=== PATIENT | male | born 1940 | race Caucasian/White ===

== ENCOUNTER → 2021-02-16 14:06 | Outpatient (BNVA) | payer MEDICARE, OTHER, SELFPAY | PROVIDERS: PCP Internal Medicine; Referring Provider Internal Medicine; Visit Provider Surgery | DX: L02.91 Cutaneous abscess, unspecified (principal) | CPT/HCPCS: 10061; 99212 ==

== ENCOUNTER → 2021-03-04 10:40 | Outpatient (BNVA) | payer MEDICARE, OTHER, SELFPAY | PROVIDERS: PCP Internal Medicine; Visit Provider Surgery | DX: L02.212 Cutaneous abscess of back [any part, except buttock and flank] (principal); Z79.899 Other long term (current) drug therapy | CPT/HCPCS: 10061; 99212 ==

== ENCOUNTER 2024-08-14 08:09 | Outpatient (REF) | payer MEDICARE, OTHER, SELFPAY ==
[2024-08-14 08:24] LABS: MANUAL DIFF FLAG NO
[2024-08-14 08:34] LABS: Basophils Absolute Auto 0.1 X10*3/uL (0.0-0.2); Basophils Percent Auto 0.8 % (0-2); Eosinophils Absolute Auto 0.4 X10*3/uL (0.0-0.4); Eosinophils Percent Auto 6.2 % (0-4); Hematocrit 39.6 % (42.0-52.0); Hemoglobin 13.3 g/dl (14.0-18.0); Imm Gran Abs Auto 0.03 X10*3/uL (0.00-0.03); Imm Gran Pct Auto 0.5 % (0.0-0.4); Lymphocytes Absolute Auto 1.6 X10*3/uL (1.2-4.9); Lymphocytes Percent Auto 24.8 % (20-40); Mean Corpuscular HGB Conc 33.6 g/dl (31.0-36.0); Mean Corpuscular Hemoglobin 29.7 pg (27.0-33.0); Mean Corpuscular Volume 88.4 fL (80.0-98.0); Mean Platelet Volume 9.6 fL (9.4-12.4); Monocytes Absolute Auto 0.6 X10*3/uL (0.1-1.2); Monocytes Percent Auto 8.6 % (2-11); Neutrophils Absolute Auto 3.9 x10*3/uL (2.0-8.3); Neutrophils Percent Auto 59.1 % (45-73); Platelet Count 186 X10*3/uL (160-400); Red Blood Count 4.48 X10*6/uL (4.60-5.80); Red Cell Distribution Width 13.1 % (11.0-16.0); White Blood Count 6.6 X10*3/uL (4.8-10.8)
[2024-08-14 08:44] LABS: Estimated Average Glucose 114 mg/dL; Hemoglobin A1c % 5.6 % (<6.0); Total Hemoglobin (HGBA1C) 3362.5806 umol/L
[2024-08-14 09:02] LABS: Alanine Aminotransferase 12 U/L (0-40); Alkaline Phosphatase 87 U/L (39-117); Anion Gap 11 (12-20); Aspartate Amino Transferase 22 U/L (5-37); Bilirubin Total 0.5 mg/dL (0.0-1.0); Blood Urea Nitrogen 19 mg/dL (9-16); Calcium 9.1 mg/dL (8.4-10.2); Carbon Dioxide 31 mmol/L (22-29); Chloride 103 mmol/L (96-108); Cholesterol 151 mg/dL (<200); Estimated Glomerular Filt Rate > 60; Glucose Fasting 99 mg/dL (60-99); HDL Cholesterol 52 mg/dL (>40); LDL Cholesterol Calculated 84 mg/dL (<100); Potassium 4.7 mmol/L (3.3-5.1); Sodium 140 mmol/L (135-145); Total Protein 6.7 g/dL (6.5-8.0); Triglycerides 77 mg/dL (<150)
== END 2024-08-14 08:10 | disposition home or self-care (01) ==
LOC: HO.LAB 08:09
PROVIDERS: PCP Internal Medicine; Visit Provider Internal Medicine
DX: E11.9 Type 2 diabetes mellitus without complications (principal); R53.83 Other fatigue; E78.5 Hyperlipidemia, unspecified
CPT/HCPCS: 36415; 80053; 80061; 83036; 85025

== ENCOUNTER 2024-11-01 10:00 | Outpatient (AMB) | payer MEDICARE, OTHER, SELFPAY ==
--- NOTE | 2024-11-01 10:32 | A.OFFPC_ITS ---
Vital Signs 11/01/24 10:35 Height 5 ft 10 in Weight 216 lb BMI 31.0 BP 140/70 H Blood Pressure Location Rt brachial Position Sitting Respiration 14 Pulse 52 Pulse Source Pulse Oximeter Temp 98.1 F Temp Source Oral Pulse Oximetry (%) 96 Oxygen Delivery Method Room Air Intake Visit Reasons: MEDIA PRODUCER-EST CARE Intake Note: Patient is here to establish care Traveling Engineer Required: No Allergies No Known Drug Allergies Allergy (Unknown, Verified 11/01/24 10:33) U Medication List - Last Reconciled 11/01/24 by Choco Wen MD lisinopril 5 mg PO DAILY metoprolol tartrate 25 mg PO BID 90 days naproxen 500 mg PO BID simvastatin 20 mg PO BEDTIME tamsulosin 0.4 mg PO DAILY Tobacco use date assessed: 11/01/24 Fall risk assessment: 2 + Falls in past year Last assessed Fall Risk: 11/01/24 Dental Screening Dental Screen Date: 11/01/24 Did you have a dental visit in the last 12 months?: No Did you have a dental problem in the last 6 months where you did not have access to dental care?: No Was dental information given to patient?: No HPI MEDIA PRODUCER-EST CARE HPI Details New Patient? ?? Prior PCP:?Dr Lai Last office visit/CPE:? Sep CPE Acute issue(s):? Urinary Urgency since Radiation therapy & some diarrhea & on Eligard - Leupron ?? PMHx:? Prostate CA & Bladde r CA, Dr Singh. HTN, HLD, SurgHx:? R Knee replacement 2022, Dr Wen. FHx:? Brother: Throat CA. Brother: Alzheimers. Sister: RA. Sister: Alzheimers. SocHx:? Smoked - quit > 20 yrs ago. EtOH: 1-2 beers per day. HPI Comments History of Present Illness Details Documentation assistance for christine Wen MD, was provided by Antonio Franklin,? Emergency Response Technician on 11/01/2024 at 11:27 AM EST. I, Dr. Wen, have read, observed, and verified documentation. ?? PFSH Medical History Abscess of skin and subcutaneous tissue Surgical History History of incision and drainage History of removal of cyst History of laminectomy History of cholecystectomy History of shoulder surgery Social History Housing: House Alcohol intake: current Alcohol intake frequency: 0-2 drinks per day Alcohol type: beer Patient Tobacco Use Status: Never used Tobacco e-Cigarette/Vaping Use: Never Used service: Yes Current occupational status: retired Current occupational exposures/hazards: No Cognitive needs: No Hearing needs: Yes Vision needs: Yes Questionnaire PHQ-9 Over the last 2 weeks, how often have you been bothered by any of the following problems? 1. Little interest or pleasure in doing things: not at all 2. Feeling down, depressed, or hopeless: not at all 3. Trouble falling or staying asleep, or sleeping too much: several days 4. Feeling tired or having little energy: not at all 5. Poor appetite or overeating: not at all 6. Feeling bad about yourself - or that you are a failure or have let yourself or your family down: not at all 7. Trouble concentrating on things, such as reading the newspaper or watching television: not at all 8. Moving or speaking so slowly that other people could have noticed. Or the opposite - being so fidgety or restless that you have been moving around a lot m ore than usual: not at all 9. Thoughts that you would be better off or of hurting yourself in some way: not at all Total score: 1 Depression Screening Interpretation: Negative Depression Screening Done: Yes 71080 - PHQ-9 Billing: Yes Source: Developed by Drs. Abe Richards, Ilana Malone, Nicolas Constantino and colleagues, with an educational adrianna from [employer]. Thrive Questionnaire Date Thrive assessed: 11/01/24 I am a: Patient What is your living situation today?: I have a steady place to live Within the past 12 months, did the food you bought not last and you didn't have the money to get more?: Never true Within the past 12 months, did you worry whether your food would run out before you got money to buy more?: Sometimes True Do you have trouble paying for medicines?: No Do you have trouble getting transportation to medical appointments?: No Do you have trouble paying your heating and electricity bill?: No Do you have trouble taking care of your child, family member or friend?: No Do you have trouble with day-to-day activities such as bathing, preparing meals, shopping, managing finances, etc.?: No Are you currently unemployed and looking for a job?: No Are you interested in more education?: No Please select the resources that you would like help with: None Currently or been in a relationship where the following occur: No concerns reported THRIVE Score: 1 AUDIT C Alcohol Use Questionnaire (AUDIT-C) 1. How often do you have a drink containing alcohol?: 2-3 times a week 2. How many drinks containing alcohol do you have on a typical day when you are drinking?: 1 or 2 3. How often do you have six or more drinks on one occasion?: Never Total Score: 3 ANA-7 AMB Questionnaire ANA-7 Date ANA - 7 assessed: 11/01/24 Feeling nervous, anxious, or on edge: 0 = Not at all Not being able to stop or control worryin = Not at all Worrying too much about different things: 0 = Not at all Trouble relaxin = Not at all Being so restless that it is hard to sit still: 0 = Not at all Becoming easily annoyed or irritable: 0 = Not at all Feeling afraid as if something awful might happen: 0 = Not at all Total ANA-7 score (0-4 normal; 5-9 mild; 10-14 moderate; 15-21 severe): 0 Source: Developed by Drs. Abe Richards, Ilana Malone, Nicolas Constantino and colleagues, with an educational adrianna from [employer]. ANA-7 Assessment Billing ANA-7 Assessment Tool: ANA-7 Assessment 14711 Review of Systems Const Denies chills, Denies fatigue, Denies fever(s), Denies headache(s) and Denies weakness ENT Denies dizziness and Denies headache(s) Card Denies chest pain, Denies lightheadedness, Denies dyspnea and Denies other (Palpitations) Resp Denies cough, Denies dyspnea, Denies wheezing and Denies other ( shortness of breath) Musc Denies numbness and Denies tingling Neuro Denies dizziness, Denies headache(s), Denies numbness, Denies tingling, Denies paresthesias and Denies weakness Psych Denies anxiety and Denies depression Endo Denies fatigue Aller/Immun Denies wheezing Physical exam (Primary Care) Vital Signs: Last Vital Signs Temp 98.1 F 11/01/24 10:35 Pulse 52 11/01/24 10:35 Resp 14 11/01/24 10:35 BP 140/70 H 11/01/24 10:35 Pulse Ox 96 11/01/24 10:35 Oxygen Delivery Method Room Air 11/01/24 10:35 BMI result Body Mass Index 31.0 Tobacco/Smoking Status: Tobacco use Status Tobacco use date assessed 11/01/24 11/01/24 10:38 Patient Tobacco Use Status Never used Tobacco 11/01/24 10:38 e-Cigarette/Vaping Use Never Used 11/01/24 10:38 PHQ-9: PHQ-9 Score PHQ-9: Total score 1 11/01/24 10:38 Depression Screening Interpretation: Negative Thrive Assessment: Date of Thrive Assessment Date Thrive assessed 11/01/24 11/01/24 10:38 Currently or been in a relationship where the following occur: No concerns reported Const General: no acute distress and well developed Nutritional Appearance: well nourished Orientation/consciousness: patient oriented x3 HENMT Head: Yes normocephalic and Yes atraumatic Eyes General: appearance normal, both eyes and all related structures Pupils: Equal, round and reactive pupils present EOM: EOMs intact bilaterally Resp Other: Wheeze/squeak Effort & Inspection: normal respiratory effort Auscultation: clear to auscultation bilaterally Cardio Rate: regular rate Rhythm: regular rhythm Heart sounds: S1 normal heart sound present, S2 normal heart sound present, no gallops, no murmurs and no rubs Neuro General: patient oriented x3 and gait normal Cranial nerves: Yes Equal, round and reactive pupils present Psych Affect: normal affect Coding Level of Care Code New Pt Level 4 (91836) Diagnoses Hypertension I10 Hyperlipidemia E78.5 Urinary urgency R39.15 Diarrhea R19.7 History of prostate cancer Z85.46 History of bladder cancer Z85.51 History of knee replacement Z96.659 Laboratory exam ordered as part of routine general medical examination Z00.00 Additional Codes ANA-7 Assessment Billing - ANA-7 Assessment Tool: ANA-7 Assessment 57519 ([id number]) PHQ-9 - 01097 - PHQ-9 Billing: Yes ([id number]) Assessment & Plan Assessment & Plan (1) Hypertension: Code(s): I10 - Essential (primary) hypertension Category: Medical Plan: Blood?pressure?is?elevated?today.??Goal?is?less?than?140/90 1st?visit?and?patient?notes?that?he?expects?it?high?due?to?this. Will?have?him?come?back?for?follow-up.??If?still?el evated,?will?adjust?medication. Continue?current?medication?regimen (2) Hyperlipidemia: Code(s): E78.5 - Hyperlipidemia, unspecified Category: Medical Plan: Continue?simvastatin Will review?recent?lab?work?from?his?private?physician.??Patient?say s?his?lipids?were?controlled. (3) Urinary urgency: Code(s): R39.15 - Urgency of urination Category: Medical Plan: Followed?by?Dr. Singh Urinary?symptoms?since?radiation?therapy?for?prostate?and?bladder?cancer. Follow-up?with??as?recommended (4) Diarrhea: Code(s): R19.7 - Diarrhea, unspecified Category: Medical Plan: Appears?to?be secondary?to Eligard And?radiation?therapy. Follow-up?with??as?recommended (5) History of prostate cancer: Code(s): Z85.46 - Personal history of malignant neoplasm of prostate Category: Medical Plan: As?above,?follow-up?with?Urology (6) History of bladder cancer: Code(s): Z85.51 - Personal history of malignant neoplasm of bladder Category: Medical Plan: As above (7) History of knee replacement: Code(s): Z96.659 - Presence of unspecified artificial knee joint Category: Surgical Plan: History?of?right?knee?replacement?with complications?resulting?in?pain?and?decreased?range?of?motion?of?right?knee.??Pa tient?walks?with?a?cane?and?has?mild/moderate gait?disturbance. Recommend?walk-in?shower to?avoid?slips/falls. (8) Laboratory exam ordered as part of routine general medical examination: Code(s): Z00.00 - Encounter for general adult medical examination without abnormal findings Category: Medical Plan: Requesting?lab?work?prior?PCP?and?will?review Medications: Changed From metoprolol tartrate 25 mg PO BID To metoprolol tartrate 25 mg PO BID 90 days 180 tabs 3RF
[2024-11-01 10:35] VITALS: BP 140/70; PULSE 52; RESP 14; TEMP 36.7; O2SAT 96; BMI 31.0
--- OUTSIDE RECORDS SUMMARY | 2024-11-01 11:39 | XMS_ITS | Continuity of Care Document ---
Author Organization [place] - [facility], [facility] Address [address] [place] [address] Care Team Providers Care Vision Impaired Teacher Name Role Phone LOBITO RUDOLPH Referring Provider [phone] LOBITO RUDOLPH Primary Care Provider [phone] Assessment Encounter Date Assessment Date Assessment LastModified by Organization Details LastModified Time 10/10/2024 10/10/2024 Assessment: Lateral shift/tilting noted in patella. Fair quad strength; fatigued with SLR but good amanda to increased weight with therex. Plan: Continued PT is recommended at 2x/week to decrease pain, improve quad strength, and increase participation in functional activities. Not available 10/10/2024 13:23:34 Plan of Treatment Reminders Order Date Submit Date Provider Last Modified By Organization Details Last Modified Time Details Appointments PT FOLLOW-U P 2024 08:30A M Katelynn Cabrera, SAMPLE TAKER OPERATOR Not available Not available Not available PT FOLLOW-U P 2024 09:00A M Katelynn Cabrera, SAMPLE TAKER OPERATOR Not available Not available Not available PT FOLLOW-U P 2024 09:30A M Shilpa Power, DPT Not available Not available Not available PT FOLLOW-U P 2024 09:30A M Shilpa Power, DPT Not available Not available Not available PT FOLLOW-U P 2024 09:00A M Shilpa Power, DPT Not available Not available Not available PT FOLLOW-U P 2024 09:00A M Shilpa Power, DPT Not available Not available Not available RECHECK 15 2024 08:45A M Fauzia Wilson PA-C Not available Not available Not available Lab None recorded . Referral None recorded . Procedures None recorded . Surgeries None recorded . Imaging None recorded . Medication Orders None recorded . Patient TargetsNo targets recorded. Patient InstructionsNo instructions recorded. Reason for Referral None Reported. Problems Name Problem SNOMED Code Status Onset Date Resolution Date Notes Provider Name and Address Organization Details Recorded Time No complaints 771532307 Active Status : 'I'; Not Available [facility] 4 09:10:30 Hip pain 30167388 Active 2023 CASA LAGUNAS [facility] 4 13:08:22 Problem Notes None recorded. Procedures Surgical History Date Name Laterality Status Provider Name and Address Organization Details Recorded Time 5 54198 Therapeutic Exercise (1:1) cancelled Katelynn Cabrera PTA [address] [facility], [place], [address], [facility] 10/30/2024 18:29:11 5 89306: Manual therapy cancelled Katelynn Cabrera PTA [address], [place], [address], [facility] 10/30/2024 18:29:11 5 34658 Therapeutic Exercise (1:1) completed Shilpa Power DPT [address] [facility], [place], [address], [facility] 10/27/2024 13:18:03 5 00609: Manual therapy completed Shilpa Power DPT [address], [place], [address], [facility] 10/27/2024 13:18:03 5 50512 Therapeutic Exercise (1:1) completed Katelynn Cabrera PTA [address], [place], [address], [facility] 10/24/2024 07:25:17 5 06146: Manual therapy completed Katelynn Cabrera PTA [address], [place], [address], [facility] 10/24/2024 07:25:17 5 25111 Therapeutic Exercise (1:1) completed Katelynn Cabrera PTA [address], [place], [address], [facility] 10/19/2024 14:14:44 5 31733: Manual therapy completed Katelynn Cabrera PTA [address], [place], [address], [facility] 10/19/2024 14:14:44 5 94233 Therapeutic Exercise (1:1) completed Shilpa Power DPT [address], [place], [address], [facility] 10/19/2024 07:49:40 5 75945: Manual therapy completed UNIQUE EncinasT [address], [place], [address], [facility] 10/19/2024 07:49:40 5 28776 Therapeutic Exercise (1:1) completed Katelynn Cabrera PTA [address], [place], [address], [facility] 10/12/2024 10:45:00 5 40211: Manual therapy completed Katelynn Cabrera PTA [address], [place], [address], [facility] 10/12/2024 10:45:00 5 72732 Therapeutic Exercise (1:1) completed Katelynn Cabrera PTA [address], [place], [address], [facility] 10/08/2024 15:22:27 5 42418: Manual therapy completed Katelynn Cabrera PTA [address], [place], [address], [facility] 10/08/2024 15:22:27 5 77724 Therapeutic Exercise (1:1) completed Katelynn Cabrera PTA [address], [place], [address], [facility] 10/05/2024 07:03:26 5 60765: Manual therapy completed Katelynn Cabrera PTA [address], [place], [address], [facility] 10/05/2024 07:03:26 5 13320 Therapeutic Exercise (1:1) completed Katelynn Cabrera PTA [address], [place], [address], [facility] 10/03/2024 09:32:22 5 73647: Manual therapy completed Katelynn Cabrera PTA [address], [place], [address], [facility] 10/03/2024 09:32:20 5 66529 Therapeutic Exercise (1:1) completed Shilpa Power DPT [address], [place], [address], [facility] 10/01/2024 13:43:52 5 69417: Low complexity PT Eval completed Shilpa Power DPT [address], [place], [address], [facility] 10/01/2024 13:43:55 5 G8417 BMI Above Upper Parameters, F/U Documented completed Shilpa Power DPT [address], [place], [address], [facility] 09/24/2024 13:45:51 5 G8427 Current Medication Documented completed Shilpa Power DPT [address], [place], [address], [facility] 09/24/2024 13:45:53 Imaging Results None recorded. Procedure Notes None recorded. Medical Equipment None Reported. Allergies No known drug allergies Medications Name Sig Start Date Stop Date Status Note LastModified by Organization Details LastModified Time naproxen 125 mg/5 mL oral suspension Take 10 mL every 6 hours by oral route. active Not Available Not Available No t Available simvastatin 20 mg tablet Take 1 tablet every day by oral route. active Not Available Not Available No t Available lisinopril 2.5 mg tablet Take 1 tablet every day by oral route. active Not Available Not Available No t Available oxycodone HCl-oxycodo ne-ASA 1 every [address] WHILE TAKING THIS MEDICATIO N 08/07 completed Statu s: 'Curr ent'; Not Available Not Available Not Available metoprolol succinate ER 25 mg capsule sprinkle, ext. release 24 hr Take 1 capsule every day by oral route. active Not Available Not Available No t Available Vitals None Recorded Social History Question Answer Notes LastModified by Organizat ion Details LastModified Time Tobacco Smoking Status Never Smoker CASA medrano [place] - [facility] 08/07/2024 13:07:27 What Is Your Level Of Alcohol Consumption? Occasional Information not available 08/07/2024 How Many Times Per Week Do You Consume Alcohol? Less Than 1 Time Per Week Information not available 08/07/2024 Have You Ever Been Counseled For Unhealthy Alcohol Use? No Information not available 08/07/2024 What Is Your Relationship Status? Information not available 08/07/2024 Do You Use Any Illicit Or Recreational Drugs? No Information not available 08/07/2024 Do You Or Have You Ever Used Any Other Forms Of Tobacco Or Nicotine? No Information not available 08/07/2024 Sex: Unknown Functional Status None recorded. Mental Status None recorded. Family History Nothing Reported. Medical History Condition Response Allergies/Hayfever N Coronary Artery Disease N Anxiety/Depression N Breathing or lung disorders N Emphysema N Nerve Disorders N Thyroid Problems N COPD N Pacemaker N Anemia N Kidney/Bladder Problems N Vascular Disease N Heart Trouble N Heart Attack ([place]) N Gastrointestinal Disease N Cholesterol Y Diabetes N Autoimmune disease N Bleeding Disorder N Inflammatory Joint disease N Orthotics N Arthritis N Seizures/Epilepsy N Blood Clot N AIDS/HIV N Congestive Heart Failure (CHF) N Acid Reflux (GERD) N Cancer N Stroke N Asthma N Circulation Problems N Peripheral Vascular Disease N Sleep Apnea N Hepatitis N Heart Disease N Rheumatoid Arthritis N Arrhythmia N Pulmonary Embolism N Headaches N Fibromyalgia N Hypertension Y Osteoporosis N Past Encounters Encounter ID Performer Location Encounter Start Date Encounter Closed Date Diagnosis/Indication Diagnosis SNOMED-CT Code Diagnosis ICD10 Code Diagnosis Note [id number] Fauzia Wilson PA-C [facility] [address] [place] [address] 10/01/2024 13:46:47 10/02/2024 09:31:20 Disorder of patellofemoral joint 574407721 M22.2X1 [id number] Shilpa Power DPT [facility] [address] [place] [address] 10/03/2024 08:26:52 10/03/2024 09:03:07 Disorder of patellofemoral joint 723515288 M22.2X1 [id number] Shilpa Power [facility] [address] [place] [address] 10/08/2024 08:52:08 10/08/2024 09:47:53 Disorder of patellofemoral joint 092304104 M22.2X1 [id number] Shilpa Power [facility] [address] [place] [address] 10/10/2024 09:21:38 10/10/2024 10:03:49 Disorder of patellofemoral joint 954278634 M22.2X1 Health Concerns Section Related Observation LastModified by Organization Detai ls LastModified Time None Recorded Concern Status LastModified by Organization Details LastModified Time None Recorded Payers Encounter Date Sequence Insurance Name Policy Number Policy Reina Covered Member ID Reina Member ID Guarantor Name 10/10/2024 2 [facility] [id number] Diamante Roy [id number] Choco Roy 10/10/2024 1 MEDICARE B-IN: [facility] [employer] Choco Roy [id number] Choco Roy Notes Date Note Type Note Provider Name and Address Organization Details Recorded Time 10/10/2024 text/html Pt reports 4/10 px in knee with ongoing difficulty with asc stairs. Katelynn Cabrera, SAMPLE TAKER OPERATOR [address] [facility] [address], [place], [address], [facility] - [facility] 10/10/2024 13:24:14
--- OUTSIDE RECORDS SUMMARY | 2024-11-01 11:39 | XMS_ITS ---
Author Organization [facility] Address [address] [place] [address] Care Team Providers Care Inspector Motor Vehicles Name Role Phone Russel Lai MD Primary Care Provider Artem Rae Unavailable [phone] Allergies Allergen (clinical drug ingredient) Drug/Non Drug Allergy documented on EMR Reaction Allergy Type Onset Date Status Seasonale Unknown Drug Allergy Active Medications Medication SIG (Take, Route, Frequency, Duration) Notes Start Date End Date Status Naproxen 250 MG Orally Acti ve Simvastatin 20 MG Orally Ac tive Tamsulosin HCl Activ e oxyBUTYnin Chloride ER Not-Taking oxyBUTYnin 15 Not-Ta lorene Lisinopril-hydroCHLOROthi azide 20-25 MG 1 tablet Orally Once a day Active Metoprolol Tartrate 50 MG 1 tablet with food Orally Twice a day Active Social History Tobacco Use: Social History Observation Description Date Details (start date - stop date) Former Smoker NA - NA Tobacco Use/Smoking Question Answer Notes Are you a: former smoker Additional Findings: Tobacco Non-User Current no n-smoker Alcohol Screen Question Answer Notes Did you have a drink contain ing alcohol in the past year? Yes How often did you have a dri nk containing alcohol in the past year? 4 or more times a week (4 points) Points 4 Interpretation Positive Tobacco use other than smoking: Question Answer Notes Are you an other tobacco user? No Vital Signs Height 5ft 11in in 03/19/2024 Weight 217 lbs 03/19/2024 BMI 30.26 kg/m2 03/19/2024 Encounters Encounter Location Date Provider Diagnosis [facility] [address] [place] [address] 03/19/2024 ArtemGant Plan Of Treatment No Information Progress Notes * Choco ROYDOB:1940 (84 yo M)Acc No.[id number]:03/19/2024 Progress Notes Patient:Choco GONZALEZ Provider:?Artem Gottlieb DPM :1940???Age:84 Y???Sex:Male Sergei e:03/19/2024 Address:[address] [place], [place] [address] Pcp:Russel Lai MD Subjective: * Chief Complaints: * ??? * ROS:?General/Constitutional:?Nausea?denies.?Vomiting?denies.?Hunger Thirst?denies.?Loss appetite?denies.?Chills?denies.?Fatigue?denies.?Fever?denies.?Night Sweats?denies.?Unexplained weight loss?denies.?Unexplained weight gain?denies.?HEENTM:?Dentures?denies.?Dizziness?denies.?Glasses/contacts?admits.?Retinopathy?de nies.?Blurred/double vision?denies.?TMJ?denies.?Discharge/drainage?denies.?Implants?denies.?Sore throat?denies.?Dental implants?admits.?Hard of hearing ?admits.?Difficulty chewing/swallowing/speaking?denies.?Nose bleeds?denies.?Sore mouth?denies.?Respiratory:?On Oxygen?denies.?Pneumonia/pleurisy?denies.?Bronchitis?denies.?Emphysema?denies.?C oughing?denies.?Cough blood?denies.?Shortness of breath?denies.?Wheezing?denies.?Cardiovascular:?Pacemaker?denies.?MVP?denies.?WPW?denies.?CHF?denies.?Heart attack?denies.?Septal defect?denies.?Rapid beat?denies.?Chest pain ?denies.?Atrial Fib.?denies.?Murmur/Palpitations?denies.?Gastrointestinal:?Hemorrhoids?denies.?Stomach/Abdominal pain?denies.?Dark blood stool?denies.?Irritable bowel ?denies.?Constipation?denies.?Diarrhea?denies.?Hematology:?Swelling?denies.?Clots?denies.?Varicose Veins?denies.?Bruising?denies.?Bleeding problem?denies.?Genitourinary:?Blood urine?denies.?Frequent/Painfu/urination/bladder control?admits.?Kidney stones?denies.?Infection (UTI)?denies.?Nephropathy?denies.?sex trans dis (STD)?denies.?Prostate?admits.?Musculoskeletal:?Hammertoes?denies.?Bunions?denies.?Back Pain?admits.?Muscle Cramps/ Resting?admits.?Muscle cramps / walking?admits.?Generalized aches and pains?admits.?Weakness?denies.?Integ.:?Bourgeois?denies.?Scars?denies.?Corns/calluses?admits.?Ingrown nails?denies.?Painful nails?denies.?Open Sores?denies.?Rashes?denies.?Neurologic:?Difficulty sleeping?admits.?Brain disorder?denies.?Numbness?denies.?Balance trouble?denies.?Confusion?denies.?Fainting/blackouts?denies.?Tingling?denies.?Tr emors?denies.? * Medical History:?Arthritis, Back,Hip,and Knee pain, Gall bladder problems, High blood pressure, Measles, Mumps, Chicken pox, Joint implants/screws, Prostate conditions, Keratoma, Calcaneal spur, Hammer toe, CAD (Cholesterol), Kidney disease. * Surgical History:?Radiation DX 09/01/19-, shoulder surgery 1981, 2004, 2019, lumbar , Gall bladder , knee replacement 2022. * Hospitalization/Major Diagno stic Procedure:?[facility]- CT scan 06/2020. * Family History:?Mother: dece ased, foot problems, diagnosed with Family history of arthritis, Unspecified essential hypertension.?Father: , foot problems, diagnosed with Family history of arthritis.?Siblings: arthritis.? * Social History:?Tobacco Use:?Tobacco Use/Smoking?Are you a:?former smoker ?Additional Findings: Tobacco Non-User?Current non-smoker ?Tobacco use other than smoking?Are you an other tobacco user??No ???Drugs/Alcohol:?Drugs?Have you used drugs other than those for medical reasons in the past 12 months??No ?Alcohol Screen?Did you have a drink containing alcohol in the past year??Yes ?How often did you have a drink containing alcohol in the past year??4 or more times a week (4 points) ?Points?4 ?Interpretation?Positive ???Miscellaneous:?Caffeine: yes, frequency:, 1-2 cups per day. ?Children: yes, 4. ?Marital status: . ?Occupation: retired- [employer]. * Medications:?Taking Metoprol ol Tartrate 50 MG Tablet 1 tablet with food Orally Twice a day , Taking Lisinopril-hydroCHLOROthiazide 20-25 MG Tablet 1 tablet Orally Once a day , Taking Simvastatin 20 MG Tablet Orally , Taking Naproxen 250 MG Tablet Orally , Taking Tamsulosin HCl , Not-Taking/PRN oxyBUTYnin 15 mg , Not-Taking/PRN oxyBUTYnin Chloride ER * Allergies:?Seasonale. Objective: * Vitals:?Ht: 5ft 11in, Wt: 21 7, BMI: 30.26, Ht-cm: 180.34 cm, Wt-k.43 kg. Assessment: Plan: * Treatment: * Images: * The named appointment provid er may or may not be the originator of this progress note, and it is not deemed complete until electronically signed by the appointment provider. Sign off status: Pending * Provider:Naomy Gottileb DPM Date:? 024 Generated for Laine lazcano/Fabienne/Betyitting on:?11/01/2024 11:39 AM EST
--- OUTSIDE RECORDS SUMMARY | 2024-11-01 11:40 | XMS_ITS | Continuity of Care Document ---
Author Organization [facility] Address [address] [place] [address] Care Team Providers Care Sales Support Assistant Name Role Phone LOBITO RUDOLPH Referring Provider RONNI LOBITO Primary Care Provider Assessment Encounter Date Assessment Date Assessment LastModified by Organization Details LastModified Time 10/19/2024 10/19/2024 Assessment: Stiff patellar mobilizations. Unable to perform side step up onto L3 box without pain. Plan: Continued PT is recommended at 2x/week to decrease pain, improve quad strength, and increase participation in functional activities. [email or web address] Not available 10/19/2024 12:02:49 Plan of Treatment Reminders Order Date Submit Date Provider Last Modified By Organization Details Last Modified Time Details Appointments PT FOLLOW-U P 2024 08:30A M Katelynn Cabrera, EMERGENCY WORKER Not available Not available Not available PT FOLLOW-U P 2024 09:00A M Katelynn Cabrera, EMERGENCY WORKER Not available Not available Not available PT FOLLOW-U P 2024 09:30A M Shilpa Power, DPT Not available Not available Not available PT FOLLOW-U P 2024 09:30A M Shilpa Power, DPT Not available Not available Not available PT FOLLOW-U P 2024 09:00A M Shilpa Power, DPT Not available Not available Not available PT FOLLOW-U P 2024 09:00A M Shilpa Cummingson, DPT Not available Not available Not available [...] Address Organization Details Recorded Time No complaints 069331074 Active Status : 'I'; Not Available [facility] 4 09:10:30 Hip pain 07024907 Active 2023 [facility] 4 13:08:22 Problem Notes None recorded. Procedures Surgical History Date Name Laterality Status Provider Name and Address Organization Details Recorded Time 5 88437 Therapeutic Exercise (1:1) cancelled Katelynn Cabrera PTA [address] [facility], [place], [address], [facility] 10/30/2024 18:29:11 5 43204: Manual therapy cancelled Katelynn Cabrera PTA [address], [place], [address], [facility] 10/30/2024 18:29:11 5 58948 Therapeutic Exercise (1:1) completed Shilpa Power DPT [address], [place], [address], [facility] 10/27/2024 13:18:03 5 31051: Manual therapy completed Shilpa Power DPT [address], [place], [address], [facility] 10/27/2024 13:18:03 5 78888 Therapeutic Exercise (1:1) completed Katelynn Cabrera PTA [address], [place], [address], [facility] 10/24/2024 07:25:17 5 33170: Manual therapy completed Katelynn Cabrera PTA [address], [place], [address], [facility] 10/24/2024 07:25:17 5 57269 Therapeutic Exercise (1:1) completed Katelynn Cabrera PTA [address], [place], [address], [facility] 10/19/2024 14:14:44 5 98764: Manual therapy completed Katelynn Cabrera PTA [address], [place], [address], [facility] 10/19/2024 14:14:44 5 22880 Therapeutic Exercise (1:1) completed UNIQUE EncinasT [address], [place], [address], [facility] 10/19/2024 07:49:40 5 58300: Manual therapy completed UNIQUE EncinasT [address], [place], [address], [facility] 10/19/2024 07:49:40 5 06952 Therapeutic Exercise (1:1) completed Katelynn Cabrera PTA [address], [place], [address], [facility] 10/12/2024 10:45:00 5 84087: Manual therapy completed Katelynn Cabrera PTA [address], [place], [address], [facility] 10/12/2024 10:45:00 5 92297 Therapeutic Exercise (1:1) completed Katelynn Cabrera PTA [address], [place], [address], [facility] 10/08/2024 15:22:27 5 90901: Manual therapy completed Katelynn Cabrera PTA [address], [place], [address], [facility] 10/08/2024 15:22:27 5 19226 Therapeutic Exercise (1:1) completed Katelynn Cabrera PTA [address], [place], [address], [facility] 10/05/2024 07:03:26 5 20634: Manual therapy completed Katelynn Cabrera PTA [address], [place], [address], [facility] 10/05/2024 07:03:26 5 10389 Therapeutic Exercise (1:1) completed Katelynn Cabrera PTA [address] [facility], [place], [address], [facility] 10/03/2024 09:32:22 5 90626: Manual therapy completed Katelynn Cabrera PTA [address], [place], [address], [facility] 10/03/2024 09:32:20 5 45982 Therapeutic Exercise (1:1) completed Shilpa Power DPT [address] [facility], [place], [address], [facility] 10/01/2024 13:43:52 5 57947: Low complexity PT Eval completed Shilpa Power DPT [address] [facility], [place], [address], [facility] 10/01/2024 13:43:55 5 G8417 BMI Above Upper Parameters, F/U Documented completed Shilpa Power DPT [address] [facility], [place], [address], [facility] 09/24/2024 13:45:51 5 G8427 Current Medication Documented completed Shilpa Power DPT [address] [facility], [place], [address], [facility] 09/24/2024 13:45:53 Imaging Results [...] Status Never Smoker CASA medrano [place] [facility] 08/07/2024 13:07:27 What Is Your Level Of [...] History Nothing Reported. Medical History Condition Response Coronary Artery Disease N Anxiety/Depression N Emphysema N COPD N Pacemaker N Vascular Disease N Heart Trouble N Gastrointestinal Disease N Autoimmune disease N Inflammatory Joint disease N Orthotics N Arthritis N Blood Clot N Acid Reflux (GERD) N Cancer N Stroke N Circulation Problems N Rheumatoid Arthritis N Arrhythmia N Headaches N Fibromyalgia N Allergies/Hayfever N Breathing or lung disorders N Nerve Disorders N Thyroid Problems N Kidney/Bladder Problems N Anemia N Heart Attack (VT) N Cholesterol Y Diabetes N Bleeding Disorder N Seizures/Epilepsy N AIDS/HIV N Congestive Heart Failure (CHF) N Asthma N Peripheral Vascular Disease N Sleep Apnea N Hepatitis N Heart Disease N Pulmonary Embolism N Hypertension Y Osteoporosis N Past Encounters Encounter ID Performer Location Encounter Start Date Encounter Closed Date Diagnosis/Indication Diagnosis SNOMED-CT Code Diagnosis ICD10 Code Diagnosis Note [id number] Fauzia Wilson PA-C [facility] [address] [place] [address] 10/01/2024 13:46:47 10/02/2024 09:31:20 Disorder of patellofemoral joint 215201748 M22.2X1 [id number] Shilpa Power, DPT [facility] [address] [place] [address] 10/03/2024 08:26:52 10/03/2024 09:03:07 Disorder of patellofemoral joint 681846389 M22.2X1 [id number] Shilpa Power DPT [facility] [address] [place] [address] 10/08/2024 08:52:08 10/08/2024 09:47:53 Disorder of patellofemoral joint 045392481 M22.2X1 [id number] Shilpa Power DPT [facility] [address] [place] [address] 10/10/2024 09:21:38 10/10/2024 10:03:49 Disorder of patellofemoral joint 175410544 M22.2X1 [id number] Shilpa Power DPT [facility] [address] [place] [address] 10/15/2024 08:59:38 10/15/2024 11:39:11 Disorder of patellofemoral joint 991566094 M22.2X1 [id number] Shilpa Power, DPT [facility] [address] [place] [address] 10/19/2024 08:27:38 10/19/2024 10:21:35 Disorder of patellofemoral joint 936098132 M22.2X1 Health Concerns Section Related Observation LastModified by Organization Detai ls LastModified Time None Recorded Concern Status LastModified by Organization Details LastModified Time None Recorded Payers Encounter Date Sequence Insurance Name Policy Number Policy Reina Covered Member ID Reina Member ID Guarantor Name 10/19/2024 2 [facility] BY [facility] [id number] Diamante Roy [id number] Choco Roy 10/19/2024 1 MEDICARE B-[place]: [facility] Choco Roy [id number] Choco Roy Notes Date Note Type Note Provider Name and Address Organization Details Recorded Time 10/19/2024 text/html Patient reports that he feels PT has been helping his knee, is having less pain going up/down stairs. Shilpa Power, DPT [address], [place], [address], [facility] 10/19/2024 12:02:58
--- OUTSIDE RECORDS SUMMARY | 2024-11-01 11:40 | XMS_ITS ---
Author Organization [facility] Address [address] [place] [address] Care Team Providers Care Steel Placer Name Role Phone Russel Lai MD Primary Care Provider UnavailArtem Bey [phone] REASON FOR VISIT ON pt NO Show Encounters Encounter Location Date Provider Diagnosis [facility] [address] [place] [address] 03/19/2024 Artem Gottlieb Plan Of Treatment No Information Progress Notes * Choco ROYDOB:1940 (84 yo M)Acc No.[id number]:03/19/2024 Patient:?Choco Roy :1940???Age:84 Y???Sex:Male Address:[place], [address] * true * Date:? Generated for Printi ng/Faarleeng/eTransmitting on:?11/01/2024 11:39 AM EST
--- OUTSIDE RECORDS SUMMARY | 2024-11-01 11:40 | XMS_ITS | Patient Health Record ---
Author Organization [facility] Address [address] [facility] [place] [address] Care Team Providers Care Junior Technical Writer Name Role Phone Russel Lai MD Primary Care Provider Artem Rae Unavailable [phone] Allergies Allergen (clinical drug ingredient) Drug/Non Drug Allergy documented on EMR Reaction Allergy Type Onset Date Status Seasonale Unknown Drug Allergy Active Reason For Referral No Information Medications Medication SIG (Take, Route, Frequency, Duration) Notes Start Date End Date Status Lisinopril 5 MG Orally Acti ve Naproxen 250 MG Orally Acti ve Simvastatin 20 MG Orally Ac tive Lisinopril-hydroCHLOROthi azide 20-25 MG 1 tablet Orally Once a day Active Metoprolol Tartrate 50 MG 1 tablet with food Orally Twice a day Active Tamsulosin HCl Activ e oxyBUTYnin Chloride ER Not-Taking oxyBUTYnin 15 Not-Ta lorene Social History Tobacco Use: Social History Observation [...] Are you an other tobacco user? No Problems Problem Type SNOMED Code ICD Code Onset Dates Problem Status W/U Status Risk Notes Problem Non-pressure chronic ulcer of other part of right foot with fat layer exposed (L97.512) Active confirmed Problem Chronic ulcer of foot (612800409) Non-pressure chronic ulcer of other part of left foot with fat layer exposed (L97.522) Active confirmed Problem Acquired hammer toe of right foot (4979548757207 105) Other hammer toe(s) (acquired), right foot (M20.41) Active confirmed Problem Acquired hammer toe of left foot (6802904497607 103) Other hammer toe(s) (acquired), left foot (M20.42) Active confirmed Encounters Encounter Location Date Provider Diagnosis [facility] [address] [place] [address] 03/19/2024 Artem Gottlieb Plan Of Treatment Pending Test Test Name Order Date X ray : Foot, left 3V 04/14/2020 X ray : Foot, right 3V 04/14/2020 [id number] SKIN/TISSUE 08/14/2020 Insurance Providers Payer Name Payer Address Payer Phone Subscriber Number Group Number Insured Name Patient Relationship to Insured Coverage Start Date Coverage End Date Medicare National [employer] [address] [facility] [place] [address] [id number] Choco Roy Self - patient is the insured [employer] [address] [place], [place] [id number] Choco Roy Self - patient is the insured Medical (General) History Medical History History ICD Code Arthritis Back,Hip,and Knee pain Gall bladder problems High blood pressure Measles Mumps Chicken pox Joint implants/screws Prostate conditions Keratoma 701.1 Calcaneal spur 726.73 Hammer toe 735.4 CAD (Cholesterol) Kidney disease Surgical History Surgery Date(Month/Year) Radiation DX 09/01/19- shoulder surgery 1982, 2005, 2019 lumbar Gall bladder knee replacement 2022 Hospitalization History Reason Date(Month/Year) [facility]- CT scan 06/2020
== END 2024-11-01 11:26 | disposition home or self-care (01) ==
PROVIDERS: PCP Internal Medicine; Visit Provider Family Medicine
DX: I10 Essential (primary) hypertension (principal); E78.5 Hyperlipidemia, unspecified; R39.15 Urgency of urination; R19.7 Diarrhea, unspecified; Z85.46 Personal history of malignant neoplasm of prostate; Z85.51 Personal history of malignant neoplasm of bladder; Z96.659 Presence of unspecified artificial knee joint; Z00.00 Encounter for general adult medical examination without abnormal findings

== ENCOUNTER → 2024-11-01 10:00 | Outpatient (BNVA) | payer MEDICARE, OTHER, SELFPAY | PROVIDERS: PCP Internal Medicine; Visit Provider Family Medicine | DX: I10 Essential (primary) hypertension (principal); E78.5 Hyperlipidemia, unspecified; R39.15 Urgency of urination; R19.7 Diarrhea, unspecified; Z85.46 Personal history of malignant neoplasm of prostate; Z85.51 Personal history of malignant neoplasm of bladder; Z96.651 Presence of right artificial knee joint | CPT/HCPCS: 96127; 99202 ==

== ENCOUNTER 2025-02-04 09:41 | Outpatient (AMB) | payer MEDICARE, OTHER, SELFPAY ==
--- NOTE | 2025-02-04 09:45 | A.OFFPC_ITS ---
Vital Signs 02/04/25 09:52 Height 5 ft 10 in Weight 213 lb 2 oz BMI 30.6 BP 128/60 Blood Pressure Location Rt brachial Position Sitting Respiration 12 Pulse 57 Pulse Source Pulse Oximeter Temp 97.8 F Temp Source Oral Pulse Oximetry (%) 96 Oxygen Delivery Method Room Air Intake Visit Reasons: f/u HTN Intake Note: patient is scheduled to follow up on HTN Product Marketing Specialist Required: No Allergies No Known Drug Allergies Allergy (Unknown, Verified 02/04/25 09:51) U Medication List - Last Reconciled 02/04/25 by Choco Wen MD leuprolide acetate (6 month) (Eligard) 45 mg subcut [id number] lisinopril 5 mg PO DAILY metoprolol tartrate 25 mg PO BID 90 days naproxen 500 mg PO BID 30 days simvastatin 20 mg PO BEDTIME Tobacco use date assessed: 11/01/24 Dental Screening Dental Screen Date: 11/01/24 HPI f/u HTN HPI Details 84 y/o male presents to f.u hypertension . Blood pressure today 128/60, 57p. He is prescribed lisinopril 5mg, metoprolol 25mg b.i.d. He notes he is not on lisinopril. Reports restless legs. Also reports neuropathy of lower extremity mostly on the L. He reports hx of back surgery. He reports ongoing back pain which worsens after walking around a bit. Improves when sitting down. Denies loss of urine, loss of stool. HPI Comments History of Present Illness Details Documentation assistance for Choco Wen MD, was provided by Antonio Franklin, Biodiesel Production Technician on 02/04/2025 at 10:09 AM AGATHA. Dixon, Dr. Wen, have read, observed, and verified documentation. [facility] Medical History Abscess of skin and subcutaneous tissue Surgical History History of incision and drainage History of removal of cyst History of laminectomy History of cholecystectomy History of shoulder surgery Social History Housing: House Alcohol intake: current Alcohol intake frequency: 0-2 drinks per day Alcohol type: beer Patient Tobacco Use Status: Never used Tobacco e-Cigarette/Vaping Use: Never Used service: Yes Current occupational status: retired Current occupational exposures/hazards: No Cognitive needs: No Hearing needs: Yes Vision needs: Yes Questionnaire Thrive Questionnaire Date Thrive assessed: 11/01/24 I am a: Patient What is your living situation today?: I have a steady place to live Within the past 12 months, did the food you bought not last and you didn't have the money to get more?: Never true Within the past 12 months, did you worry whether your food would run out before you got money to buy more?: Sometimes True Do you have trouble paying for medicines?: No Do you have trouble getting transportation to medical appointments?: No Do you have trouble paying your heating and electricity bill?: No Do you have trouble taking care of your child, family member or friend?: No Do you have trouble with day-to-day activities such as bathing, preparing meals, shopping, managing finances, etc.?: No Are you currently unemployed and looking for a job?: No Are you interested in more education?: No Please select the resources that you would like help with: None Currently or been in a relationship where the following occur: No concerns r eported THRIVE Score: 1 ANA-7 AMB Questionnaire ANA-7 Date ANA - 7 assessed: 11/01/24 Source: Developed by Drs. Abe Richards, Ilana Malone, Nicolas oCnstantino and colleagues, with an educational adrianna from [employer]. Review of Systems Const Denies chills, Denies fatigue, Denies fever(s), Denies headache(s) and Denies weakness ENT Denies dizziness and Denies headache(s) Card Denies dyspnea Resp Denies cough, Denies dyspnea, Denies wheezing and Denies other (shortness of breath) Musc Reports back pain, Denies numbness and Denies tingling Neuro Denies dizziness, Denies headache(s), Denies numbness, Denies tingling and Denies weakness Psych Denies anxiety and Denies depression Endo Denies fatigue Aller/Immun Denies wheezing Physical exam (Primary Care) Vital Signs: Last Vital Signs Temp 97.8 F 02/04/25 09:52 Pulse 57 02/04/25 09:52 Resp 12 02/04/25 09:52 BP 128/60 02/04/25 09:52 Pulse Ox 96 02/04/25 09:52 Oxygen Delivery Method Room Air 02/04/25 09:52 BMI result Body Mass Index 30.6 Tobacco/Smoking Status: Tobacco use Status Tobacco use date assessed 11/01/24 02/04/25 09:56 Patient Tobacco Use Status Never used Tobacco 02/04/25 09:56 e-Cigarette/Vaping Use Never Used 02/04/25 09:56 Thrive Assessment: Date of Thrive Assessment Date Thrive assessed 11/01/24 02/04/25 09:56 Currently or been in a relationship where the following occur: No concerns reported Const General: well developed; No acute distress Nutritional Appearance: well nourished Orientation/consciousness: patient oriented x3 HENMT Head: Yes normocephalic and Yes atraumatic Eyes General: appearance normal, both eyes and all related structures Pupils: Equal, round and reactive pupils present EOM: EOMs intact bilaterally Resp Effort & Inspection: normal respiratory effort Auscultation: clear to auscultation bilaterally Cardio Rate: regular rate Rhythm: regular rhythm Heart sounds: S1 normal heart sound present, S2 normal heart sound present, no gallops, no murmurs and no rubs Neuro General: patient oriented x3 and gait normal Cranial nerves: Yes Equal, round and reactive pupils present Psych Affect: normal affect Coding Level of Care Code Est Pt Level 5 (59926) Diagnoses Hypertension I10 Restless leg syndrome G25.81 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 He?is?taking?lisinopril-hydrochlorothiazide?20/25?mg?once?a?day?in?the?morning He?is?taking?metoprolol?25?mg?twice?a?day (2) Restless leg syndrome: Code(s): G25.81 - Restless legs syndrome Category: Medical Plan: Will?check?labs (3) Neuropathy of lower extremity: Code(s): G57.90 - Unspecified mononeuropathy of unspecified lower limb Category: Medical Plan: Patient?notes?left?lower?extremity?paresthesias?and he?recalls?a?similar?situation?with?some?footdrop?prior?to?back?surgery ?years?ago Will?refer?him?to?Neurology?and?may?need?EMG?though?is?hesitant?to?get?this?done (4) Back pain: Code(s): M54.9 - Dorsalgia, unspecified Category: Medical Plan: Low?back?pain. As?above,?he?has?had?a?history?of?low?back?surgery Will?start?with?physical?therapy Orders: Orders PT Evaluation and Treatment 02/04/25 M54.9 - Dorsalgia, unspecified Vitamin B12 and Folate 02/06/25 E53.8 - Deficiency of other specified B group vitamins, G57.90 - Unspecified mononeuropathy of unspecified lower limb Ferritin 02/06/25 G25.81 - Restless legs syndrome IRON PROFILE 02/06/25 G25.81 - Restless legs syndrome Complete Blood Count Auto Diff 02/06/25 G25.81 - Restless legs syndrome, Z00.00 - Encounter for general adult medical examination without abnormal findings Comprehensive [place]. Panel Fast 02/06/25 G25.81 - Restless legs syndrome, Z00.00 - Encounter for general adult medical examination without abnormal findings Referrals Neurology Referral G57.90 - Unspecified mononeuropathy of unspecified lower limb, R20.2 - Paresthesia of skin Medications: New lisinopril-hydrochlorothiazide 20-25 mg 1 tab PO QAM 90 tabs 3RF 90 days
[2025-02-04 09:52] VITALS: BP 128/60; PULSE 57; RESP 12; TEMP 36.6; O2SAT 96; BMI 30.6
--- OUTSIDE RECORDS SUMMARY | 2025-02-04 10:24 | XMS_ITS ---
Author Organization [facility] Address [address] [place] [address] Care Team Providers Care Magazine Designer Name Role Phone Russel Lai MD Primary Care Provider Artem Rae Unavailable [phone] Allergies Allergen (clinical drug ingredient) Drug/Non Drug [...] 03/19/2024 Encounters Encounter Location Date Provider Diagnosis [facility] [address] [place] [address] 03/19/2024 ArtemGant Plan Of Treatment No Information Progress Notes * Choco ROYDOB:1940 (84 yo M)Acc No.[id number]:03/19/2024 Progress Notes Patient:Choco GONZALEZ Provider:?Artem Gottlieb DPM :1940???Age:84 Y???Sex:Male Sergei e:03/19/2024 [address]:[address] [place], [place] [id number] Pcp:Russel Lai MD Subjective: * Chief Complaints: [...] provider. Sign off status: Pending * Provider:Naomy Gottlieb DPM Date:? 024 Generated for Laine lazcano/Fabienne/Betyitting on:?02/04/2025 10:23 AM EDT
== END 2025-02-04 10:34 | disposition home or self-care (01) ==
LOC: HO.HMCFM 09:42
PROVIDERS: PCP Family Medicine; Visit Provider Family Medicine
DX: I10 Essential (primary) hypertension (principal); G25.81 Restless legs syndrome; G57.90 Unspecified mononeuropathy of unspecified lower limb; M54.9 Dorsalgia, unspecified

== ENCOUNTER → 2025-02-04 09:41 | Outpatient (BNVA) | payer MEDICARE, OTHER, SELFPAY | PROVIDERS: PCP Family Medicine; Visit Provider Family Medicine | DX: I10 Essential (primary) hypertension (principal); G25.81 Restless legs syndrome; G57.90 Unspecified mononeuropathy of unspecified lower limb; M54.9 Dorsalgia, unspecified | CPT/HCPCS: 99212 ==

== ENCOUNTER 2025-02-06 08:09 | Outpatient (REF) | payer MEDICARE, OTHER, SELFPAY ==
[2025-02-06 08:27] LABS: MANUAL DIFF FLAG NO
[2025-02-06 09:23] LABS: Basophils Percent Auto 0.5 % (0-2); Eosinophils Absolute Auto 0.3 X10*3/uL (0.0-0.4); Hematocrit 39.6 % (42.0-52.0); Imm Gran Abs Auto 0.01 X10*3/uL (0.00-0.03); Imm Gran Pct Auto 0.2 % (0.0-0.4); Lymphocytes Absolute Auto 1.4 X10*3/uL (1.2-4.9); Mean Corpuscular HGB Conc 32.8 g/dl (31.0-36.0); Mean Corpuscular Hemoglobin 29.5 pg (27.0-33.0); Mean Corpuscular Volume 89.8 fL (80.0-98.0); Mean Platelet Volume 9.9 fL (9.4-12.4); Monocytes Absolute Auto 0.5 X10*3/uL (0.1-1.2); Monocytes Percent Auto 8.3 % (2-11); Neutrophils Absolute Auto 3.8 x10*3/uL (2.0-8.3); Platelet Count 197 X10*3/uL (160-400); Red Blood Count 4.41 X10*6/uL (4.60-5.80); Red Cell Distribution Width 12.9 % (11.0-16.0)
[2025-02-06 09:51] LABS: Alanine Aminotransferase 20 U/L (0-40); Albumin Level 4.3 g/dL (3.5-5.0); Alkaline Phosphatase 98 U/L (39-117); Anion Gap 10 (12-20); Aspartate Amino Transferase 30 U/L (5-37); Bilirubin Total 0.5 mg/dL (0.0-1.0); Blood Urea Nitrogen 23 mg/dL (9-16); Calcium 9.6 mg/dL (8.4-10.2); Carbon Dioxide 30 mmol/L (22-29); Chloride 105 mmol/L (96-108); Estimated Glomerular Filt Rate > 60; Glucose Fasting 92 mg/dL (60-99); Iron 62 mcg/dL (45-160); Percent Iron Saturation 23 % (15-50); Potassium 4.1 mmol/L (3.3-5.1); Sodium 141 mmol/L (135-145); Total Iron Binding Capacity 271 mcg/dL (228-428); Total Protein 6.8 g/dL (6.5-8.0); Unsaturated Iron Binding 209 ug/dL
[2025-02-06 10:08] LABS: Vitamin B12 272 pg/mL (200-900)
[2025-02-06 10:13] LABS: Ferritin 110 ng/mL (20-250)
== END 2025-02-06 08:10 | disposition home or self-care (01) ==
LOC: HO.LAB 08:09
PROVIDERS: PCP Family Medicine; Visit Provider Family Medicine
DX: Z00.00 Encounter for general adult medical examination without abnormal findings (principal); G25.81 Restless legs syndrome; E53.8 Deficiency of other specified B group vitamins; G57.90 Unspecified mononeuropathy of unspecified lower limb
CPT/HCPCS: 36415; 80053; 82607; 82728; 82746; 83540; 85025

== ENCOUNTER 2025-04-09 09:42 | Outpatient (AMB) | payer MEDICARE, OTHER, SELFPAY ==
--- NOTE | 2025-04-09 09:50 | MHC.PC.OV ---
Vital Signs 04/09/25 09:55 Height 5 ft 10 in Weight 206 lb 2 oz BMI 29.6 BP 120/70 Blood Pressure Location Rt brachial Position Sitting Respiration 13 Pulse 52 Pulse Source Pulse Oximeter Temp 98.4 F Temp Source Temporal Artery Scan Pulse Oximetry (%) 98 Oxygen Delivery Method Room Air Intake Visit Reasons: f/u back pain, restless legs, chronic conditions Intake Note: Choco presents in the office today for back pain, restless legs and other chronic conditions. Allergies Seasonal Allergies Allergy (Verified 04/09/25 09:52) Runny Nose Medication List - Last Reconciled 04/09/25 by Choco Wen MD leuprolide acetate (6 month) (Eligard) 45 mg subcut [id number] lisinopril-hydrochlorothiazide 20-25 mg 1 tab PO QAM 90 days metoprolol tartrate 25 mg PO BID 90 days naproxen 250 mg PO BID simvastatin 20 mg PO BEDTIME Tobacco use date assessed: 04/09/25 Fall risk assessment: No Falls in past year Last assessed Fall Risk: 04/09/25 Dental Screening Dental Screen Date: 04/09/25 Did you have a dental visit in the last 12 months?: Yes Did you have a dental problem in the last 6 months where you did not have access to dental care?: No Was dental information given to patient?: Patient has dentist HPI f/u back pain, restless legs, chronic conditions HPI Details 85 y/o male presents to f/u back pain, restless legs, chronic conditions. He reports ongoing back pain, intermittent. Has described some tingling in the past. He notes he has trialed physical therapy multiple times in the past for his back which did not help. He takes naproxen for pain. Pt notes back pain overall has not worsened and stayed about the same. HPI Comments History of Present Illness Details Documentation assistance for Choco Wen MD, was provided by Antonio Franklin,? Location Man on 04/09/2025 at 10:33 AM AGATHA. Dixon, Dr. Wen, have read, observed, and verified documentation. ? PFSH Medical History Abscess of skin and subcutaneous tissue Surgical History History of incision and drainage History of removal of cyst History of laminectomy History of cholecystectomy History of shoulder surgery Social History (Updated 04/09/25 @ 09:55 by Jessy Jones MA) Housing: House Alcohol intake: current Alcohol intake frequency: 0-2 drinks per day Alcohol type: beer Patient Tobacco Use Status: Never used Tobacco e-Cigarette/Vaping Use: Never Used Second Hand Smoke Exposure: No service: Yes Current occupational status: retired Current occupational exposures/hazards: No Cognitive needs: No Hearing needs: Yes Vision needs: Yes Questionnaire Thrive Questionnaire Date Thrive assessed: 11/01/24 I am a: Patient What is your living situation today?: I have a steady place to live Within the past 12 months, did the food you bought not last and you didn't have the money to get more?: Never true Within the past 12 months, did you worry whether your food would run out before you got money to buy more?: Sometimes True Do you have trouble paying for medicines?: No Do you have trouble getting transportation to medical appointments?: No Do you have trouble paying your heating and electricity bill?: No Do you have trouble taking care of your child, family member or friend?: No Do you have trouble with day-to-day activities such as bathing, preparing meals, shopping, managing finances, etc.?: No Are you currently unemployed and looking for a job?: No Are you interested in more education?: No Please select the resources that you would like help with: None Currently or been in a relationship where the following occur: No concerns reported THRIVE Score: 1 ANA-7 AMB Questionnaire ANA-7 Date ANA - 7 assessed: 11/01/24 Source: Developed by Drs. Abe Richards, Ilana Malone, Nicolas Constantino and colleagues, with an educational adrianna from [employer]). Review of Systems Const Denies chills, Denies fatigue, Denies fever(s), Denies headache(s) and Denies weakness ENT Denies dizziness and Denies headache(s) Card Denies dyspnea Resp Denies cough, Denies dyspnea, Denies wheezing and Denies other (shortness of breath) Musc Denies numbness and Denies tingling Neuro Denies dizziness, Denies headache(s), Denies numbness, Denies tingling and Denies weakness Psych Denies anxiety and Denies depression Endo Denies fatigue Aller/Immun Denies wheezing Physical exam (Primary Care) Vital Signs: Last Vital Signs Temp 98.4 F 04/09/25 09:55 Pulse 52 04/09/25 09:55 Resp 13 04/09/25 09:55 BP 120/70 04/09/25 09:55 Pulse Ox 98 04/09/25 09:55 Oxygen Delivery Method Room Air 04/09/25 09:55 BMI result Body Mass Index 29.6 Tobacco/Smoking Status: Tobacco use Status Tobacco use date assessed 04/09/25 04/09/25 09:58 Patient Tobacco Use Status Never used Tobacco 04/09/25 09:55 e-Cigarette/Vaping Use Never Used 04/09/25 09:55 Thrive Assessment: Date of Thrive Assessment Date Thrive assessed 11/01/24 04/09/25 09:51 Currently or been in a relationship where the following occur: No concerns reported Const General: well developed; No acute distress Nutritional Appearance: well nourished Orientation/consciousness: patient oriented x3 HENMT Head: Yes normocephalic and Yes atraumatic Eyes General: appearance normal, both eyes and all related structures Pupils: Equal, round and reactive pupils present EOM: EOMs intact bilaterally Resp Effort & Inspection: normal respiratory effort Neuro General: patient oriented x3 and gait normal Cranial nerves: Yes Equal, round and reactive pupils present Psych Affect: normal affect Coding Level of Care Code Est Pt Level 4 (53485) Diagnoses Back pain M54.9 Restless leg syndrome G25.81 Paresthesia R20.2 Hypertension I10 Left leg paresthesias R20.2 Assessment & Plan Assessment & Plan (1) Back pain: Code(s): M54.9 - Dorsalgia, unspecified Category: Medical Plan: Ongoing back pain which patient says has not worsened but stays about the same. Had referred him to Neurology as he had associated with prior lower extremity symptoms such as a footdrop. No current symptoms like this and patient declined appointment when neurology called him. Also declined physical therapy. Currently he is managing this with naproxen 250 mg b.i.d.. No adverse effects from this medication. Renal function is fine. He can continue this medication as well as ice and heat. He uses a topical medication as well. Can consider other topicals such as Aspercreme also. Can also use a small amount of Tylenol for flare ups. Hydrate well. He will let me know if this worsens (2) Restless leg syndrome: Code(s): G25.81 - Restless legs syndrome Category: Medical Plan: Lab work unremarkable. Normal ferritin and iron levels. Recommended gabapentin which can help both restless legs and paresthesias associated with his neck pain. He would like to consider this. He will read about gabapentin. (3) Paresthesia: Code(s): R20.2 - Paresthesia of skin Category: Medical Plan: As above (4) Hypertension: Code(s): I10 - Essential (primary) hypertension Category: Medical Plan: Blood pressure is controlled. Goal is less than 140/90 Continue current medications (5) Left leg paresthesias: Code(s): R20.2 - Paresthesia of skin Category: Medical Plan: As above, we discussed gabapentin He read about this Orders: Orders Comprehensive [place]. Panel Fast Today E78.5 - Hyperlipidemia, unspecified, Z00.00 - Encounter for general adult medical examination without abnormal findings Lipid Panel Today E78.5 - Hyperlipidemia, unspecified, Z00.00 - Encounter for general adult medical examination without abnormal findings Medications: Changed From naproxen 500 mg PO BID 30 days 60 tabs 3RF To naproxen 250 mg PO BID
[2025-04-09 09:55] VITALS: BP 120/70; PULSE 52; RESP 13; TEMP 36.9; O2SAT 98; BMI 29.6
--- OUTSIDE RECORDS SUMMARY | 2025-04-09 10:24 | XMS_ITS | Patient Health Record ---
[facility] Address [address] [facility] [place] [address] Care Team Providers Care Rumper Name Role Phone Russel Lai MD Primary Care Provider Artem Rae Unavailable [phone] Allergies Allergen (clinical drug ingredient) Drug/Non Drug [...] Active confirmed Problem Chronic ulcer of foot (841643951) Non-pressure chronic ulcer of other part of left foot with fat layer exposed (L97.522) Active confirmed Problem Acquired hammer toe of right foot (2458212164044 105) Other hammer toe(s) (acquired), right foot (M20.41) Active confirmed Problem Acquired hammer toe of left foot (0138388591866 103) Other hammer toe(s) (acquired), left foot (M20.42) Active confirmed Plan Of Treatment Pending Test Test Name Order Date X ray : Foot, left 3V 04/14/2020 X ray : Foot, right 3V 04/14/2020 [id number] SKIN/TISSUE 08/14/2020 Insurance Providers Payer Name Payer Address Payer Phone Subscriber Number Group Number Insured Name Patient Relationship to Insured Coverage Start Date Coverage End Date Medicare National Govt [employer] [address] [place] [address] [id number] Choco Roy Self - patient is the insured [employer]) [address] [place] [address] [id number] Choco Roy Self - patient is the insured Medical (General) History Medical History History ICD Code Arthritis Back,Hip,and Knee pain Gall bladder problems High blood pressure Measles Mumps Chicken pox Joint implants/screws Prostate conditions Keratoma 701.1 Calcaneal spur 726.73 Hammer toe 735.4 CAD (Cholesterol) Kidney disease Surgical History Surgery Date(Month/Year) Radiation DX 09/01/19- shoulder surgery 1982, 2004, 2019 lumbar Gall bladder knee replacement 2022 Hospitalization History Reason Date(Month/Year) [facility]- CT scan 06/2020
--- OUTSIDE RECORDS SUMMARY | 2025-04-09 10:24 | XMS_ITS | Encounter Summary ---
Author Organization [facility] Address [address] [facility] [address] [place] [id number] Phone Care Team Providers Care Visual Merchandising Director Name Role Phone Russel Lai MD Primary Care Provider [phone] Encounter Details Date Type Department Care Team (Latest Contact Info) Description 03/03/2022 Ancillary Orders [facility], X-Ray - [address] [place] [address] Russel Lai MD [address] [place] [id number] Panniculitis affecting regions, neck and back, multiple sites in spine Social History Tobacco Use Types Packs/Day Years Used Date Smoking Tobacco: Former Smokeless Tobacco: Never Alcohol Use Standard Drinks/Week Comments Yes 14 (1 standard drink = 0.6 oz pu re alcohol) Sex and Gender Information Value Date Recorded Sex Assigned at Male 08/23/2019 9:23 AM EST Legal Sex Male 2:29 PM EDT Gender Identity Male 08/23/2019 9:23 AM EST Sexual Orientation Straight 08/23/2019 9: 23 AM EST documented as of this encounter Plan of Treatment Not on file documented as of this encounter Results * XR LUMBOSACRAL SPINE 4 OR MORE VIEWS (03/03/2022 1:22 PM EDT) Anatomical Region Laterality Modality L-spine Computed Radiogr aphy 03/03/2022 1:29 PM EDT Impressions 03/03/2022 1:37 PM EDT Multilevel severe degenerative disc and endplate changes. No compression fractures. Narrative 03/03/2022 1:37 PM EDT XR LUMBOSACRAL SPINE 4 OR MORE VIEWS HISTORY: Chronic severe lower back pain, no known trauma. COMPARISON: None. FINDINGS: No compression fractures or subluxations. Severe degenerative disc and sclerotic degenerative endplate changes at multiple levels in the lower thoracic and lumbar spine. Vacuum disc phenomenon at T11-T12 and L4-L5. Bridging anterolateral osteophytes at multiple levels. Evidence of multilevel facet arthropathy, moderate at L4-L5 and L5-S1. Procedure Note Garrison Roth MD - 03/03/2022 XR LUMBOSACRAL SPINE 4 OR MORE VIEWS HISTORY: Chronic severe lower back pain, no known trauma. COMPARISON: None. FINDINGS: No compression fractures or subluxations. Severe degenerative disc and sclerotic degenerative endplate changes atmultiple levels in the lower thoracic and lumbar spine. Vacuum discphenomenon at T11-T12 and L4-L5. Bridging anterolateral osteophytes atmultiple levels. Evidence of multilevel facet arthropathy, moderate at L4-L5 and L5-S1. 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 No compressionfractures. Russel Lai MD IMG XR SPINE Final Resu lt documented in this encounter Visit Diagnoses Diagnosis Panniculitis affecting regions, neck and back, multiple sites in spine Panniculitis affecting regions, neck and back, multiple sites in spine documented in this encounter Care Teams Visual Merchandising Director Relationship Specialty Start Date End Date Russel Lai MD [address] [place] [id number] PCP - General Internal Medicine 11/29/18 documented as of this encounter Additional Source Comments The information contained in this document represents components of the legal health record. It is not the complete legal health record.[facility]
== END 2025-04-09 10:53 | disposition home or self-care (01) ==
LOC: HO.HMCFM 09:43
PROVIDERS: PCP Family Medicine; Visit Provider Family Medicine
DX: M54.9 Dorsalgia, unspecified (principal); G25.81 Restless legs syndrome; R20.2 Paresthesia of skin; I10 Essential (primary) hypertension

== ENCOUNTER → 2025-04-09 09:42 | Outpatient (BNVA) | payer MEDICARE, OTHER, SELFPAY | PROVIDERS: PCP Family Medicine; Visit Provider Family Medicine | DX: M54.9 Dorsalgia, unspecified (principal); G25.81 Restless legs syndrome; R20.2 Paresthesia of skin; I10 Essential (primary) hypertension | CPT/HCPCS: 99212 ==

== ENCOUNTER 2025-08-12 08:36 | Outpatient (AMB) | payer MEDICARE, OTHER, SELFPAY ==
[2025-08-12 08:47] VITALS: BP 134/78; PULSE 51; O2SAT 98; BMI 31.0
--- NOTE | 2025-08-12 08:47 | MHC.PC.OV ---
Vital Signs 08/12/25 08:47 Height 5 ft 10 in Weight 216 lb BMI 31.0 BP 134/78 Blood Pressure Location Rt brachial Position Sitting Pulse 51 Pulse Source Pulse Oximeter Pulse Oximetry (%) 98 Oxygen Delivery Method Room Air Intake Visit Reasons: f/u back pain, chronic conditions Accompanied by: Spouse Allergies Seasonal Allergies Allergy (Verified 08/12/25 08:48) Runny Nose Medication List - Last Reconciled 08/12/25 by Choco Wen MD leuprolide mesylate (6 month) (Camcevi (6 month)) 42 mg subcut [id number] lisinopril-hydrochlorothiazide 20-25 mg 1 tab PO QAM 90 days metoprolol tartrate 25 mg PO BID 90 days naproxen 250 mg (1/2 x 500 mg) PO BID 90 days simvastatin 20 mg PO BEDTIME Tobacco use date assessed: 08/12/25 Fall risk assessment: No Falls in past year Last assessed Fall Risk: 08/12/25 Dental Screening Dental Screen Date: 08/12/25 Did you have a dental visit in the last 12 months?: Yes Did you have a dental problem in the last 6 months where you did not have access to dental care?: No Was dental information given to patient?: Patient has dentist HPI f/u back pain, chronic conditions HPI Details 85 y/o male presents to f/u back pain, chronic conditions. No recent labs to review. Blood pressure today 134/78, 51p. He is on lisinopril-HCTZ 20-25mg, metoprolol 25mg b.i.d. Reports ongoing abd. discomfort. Notes he has been taking GasX which has been helping. Noted he started taking probiotics recently which worsened gas. [facility] Medical History Abscess of skin and subcutaneous tissue Surgical History History of incision and drainage History of removal of cyst History of laminectomy History of cholecystectomy History of shoulder surgery Social History Housing: House Alcohol intake: current Alcohol intake frequency: 0-2 drinks per day Alcohol type: beer Patient Tobacco Use Status: Never used Tobacco e-Cigarette/Vaping Use: Never Used Second Hand Smoke Exposure: No service: Yes Current occupational status: retired Current occupational exposures/hazards: No Cognitive needs: No Hearing needs: Yes Vision needs: Yes Questionnaire PHQ-9 Over the last 2 weeks, how often have you been bothered by any of the following problems? 1. Little interest or pleasure in doing things: not at all 2. Feeling down, depressed, or hopeless: not at all 3. Trouble falling or staying asleep, or sleeping too much: several days 4. Feeling tired or having little energy: not at all 5. Poor appetite or overeating: not at all 6. Feeling bad about yourself - or that you are a failure or have let yourself or your family down: not at all 7. Trouble concentrating on things, such as reading the newspaper or watching television: not at all 8. Moving or speaking so slowly that other people could have noticed. Or the opposite - being so fidgety or restless that you have been moving around a lot more than usual: not at all 9. Thoughts that you would be better off or of hurting yourself in some way: not at all Total score: 1 Depression Screening Interpretation: Negative Depression Screening Done: Yes Source: Developed by Drs. Abe Richards, Ilana Malone, Nicolas Constantino and colleagues, with an educational adrianna from [employer]. Thrive Questionnaire Date Thrive assessed: 11/01/24 I am a: Patient What is your living situation today?: I have a steady place to live Within the past 12 months, did the food you bought not last and you didn't have the money to get more?: Never true Within the past 12 months, did you worry whether your food would run out before you got money to buy more?: Sometimes True Do you have trouble paying for medicines?: No Do you have trouble getting transportation to medical appointments?: No Do you have trouble paying your heating and electricity bill?: No Do you have trouble taking care of your child, family member or friend?: No Do you have trouble with day-to-day activities such as bathing, preparing meals, shopping, managing finances, etc.?: No Are you currently unemployed and looking for a job?: No Are you interested in more education?: No Please select the resources that you would like help with: None Currently or been in a relationship where the following occur: No concerns reported THRIVE Score: 1 AUDIT C Alcohol Use Questionnaire (AUDIT-C) 1. How often do you have a drink containing alcohol?: 2-3 times a week 2. How many drinks containing alcohol do you have on a typical day when you are drinking?: 1 or 2 3. How often do you have six or more drinks on one occasion?: Never Total Score: 3 ANA-7 AMB Questionnaire ANA-7 Date ANA - 7 assessed: 11/01/24 Feeling nervous, anxious, or on edge: 0 = Not at all Not being able to stop or control worryin = Not at all Worrying too much about different things: 0 = Not at all Trouble relaxin = Not at all Being so restless that it is hard to sit still: 0 = Not at all Becoming easily annoyed or irritable: 0 = Not at all Feeling afraid as if something awful might happen: 0 = Not at all Total ANA-7 score (0-4 normal; 5-9 mild; 10-14 moderate; 15-21 severe): 0 Source: Developed by Drs. Abe Richards, Ilana Malone, Nicolas Constantino and colleagues, with an educational adrianna from [employer]. Review of Systems Const Denies chills, Denies fatigue, Denies fever(s), Denies headache(s) and Denies weakness ENT Denies dizziness and Denies headache(s) Card Denies dyspnea Resp Denies cough, Denies dyspnea, Denies wheezing and Denies other (shortness of breath) Musc Denies numbness and Denies tingling Neuro Denies dizziness, Denies headache(s), Denies numbness, Denies tingling and Denies weakness Psych Denies anxiety and Denies depression Endo Denies fatigue Aller/Immun Denies wheezing Physical exam (Primary Care) Vital Signs: Last Vital Signs Pulse 51 08/12/25 08:47 BP 134/78 08/12/25 08:47 Pulse Ox 98 08/12/25 08:47 Oxygen Delivery Method Room Air 08/12/25 08:47 BMI result Body Mass Index 31.0 Tobacco/Smoking Status: Tobacco use Status Tobacco use date assessed 08/12/25 08/12/25 08:54 Patient Tobacco Use Status Never used Tobacco 08/12/25 08:54 e-Cigarette/Vaping Use Never Used 08/12/25 08:54 PHQ-9: PHQ-9 Score PHQ-9: Total score 1 08/12/25 08:54 Depression Screening Interpretation: Negative Thrive Assessment: Date of Thrive Assessment Date Thrive assessed 11/01/24 08/12/25 08:54 Currently or been in a relationship where the following occur: No concerns reported Const General: well developed; No acute distress Nutritional Appearance: well nourished Orientation/consciousness: patient oriented x3 HENMT Head: Yes normocephalic and Yes atraumatic Eyes General: appearance normal, both eyes and all related structures Pupils: Equal, round and reactive pupils present EOM: EOMs intact bilaterally Resp Effort & Inspection: normal respiratory effort Auscultation: clear to auscultation bilaterally Cardio Rate: regular rate Rhythm: regular rhythm Heart sounds: S1 normal heart sound present, S2 normal heart sound present, no gallops, no murmurs and no rubs Neuro General: patient oriented x3 and gait normal Cranial nerves: Yes Equal, round and reactive pupils present Psych Affect: normal affect Coding Level of Care Code Est Pt Level 4 (53678) Diagnoses Back pain M54.9 Hypertension I10 Hyperlipidemia E78.5 Abdominal discomfort R10.9 History of bladder cancer Z85.51 Assessment & Plan Assessment & Plan (1) Back pain: Code(s): M54.9 - Dorsalgia, unspecified Category: Medical Plan: Stable Had previously offered physical therapy and referrals. Patient has declined We can continue to monitor (2) Hypertension: Code(s): I10 - Essential (primary) hypertension Category: Medical Plan: Blood pressure is controlled. Goal is less than 140/90 Continue current medications (3) Hyperlipidemia: Code(s): E78.5 - Hyperlipidemia, unspecified Category: Medical Plan: Patient has not had his labs drawn yet but will do so prior to next visit (4) Abdominal discomfort: Code(s): R10.9 - Unspecified abdominal pain Category: Medical Plan: Bloating and gas He can use simethicone Has also been using a probiotic and he noticed it was worse with probiotic. He has discontinued this (5) History of bladder cancer: Code(s): Z85.51 - Personal history of malignant neoplasm of bladder Category: Medical Plan: History of bladder cancer as well as BPH and prostate CA He is on leuprolide Follow-up with urology as recommended Recommended scheduled voids as he is having some urinary retention issues still. Orders: Orders Lipid Panel Today Z00.00 - Encounter for general adult medical examination without abnormal findings Microalbumin, Random (w Creat) Today I10 - Essential (primary) hypertension TSH reflex Free T4 Today Z00.00 - Encounter for general adult medical examination without abnormal findings Vitamin B12 and Folate Today E53.8 - Deficiency of other specified B group vitamins Vitamin D 25-OH Total Today E55.9 - Vitamin D deficiency, unspecified Comprehensive [place]. Panel Fast Today Z00.00 - Encounter for general adult medical examination without abnormal findings Complete Blood Count Auto Diff Today Z00.00 - Encounter for general adult medical examination without abnormal findings UA CC w/rflx Micro + Cult Today Z00.00 - Encounter for general adult medical examination without abnormal findings Prostate Specific Antigen Scr Today Z12.5 - Encounter for screening for malignant neoplasm of prostate
== END 2025-08-12 09:30 | disposition home or self-care (01) ==
LOC: HO.HMCFM 08:37
PROVIDERS: PCP Family Medicine; Visit Provider Family Medicine
DX: M54.9 Dorsalgia, unspecified (principal); I10 Essential (primary) hypertension; E78.5 Hyperlipidemia, unspecified; R10.9 Unspecified abdominal pain; Z85.51 Personal history of malignant neoplasm of bladder

== ENCOUNTER → 2025-08-12 08:36 | Outpatient (BNVA) | payer MEDICARE, OTHER, SELFPAY | PROVIDERS: PCP Family Medicine; Visit Provider Family Medicine | DX: I10 Essential (primary) hypertension (principal); M54.9 Dorsalgia, unspecified; E78.5 Hyperlipidemia, unspecified; R10.9 Unspecified abdominal pain; Z85.51 Personal history of malignant neoplasm of bladder; Z13.31 Encounter for screening for depression | CPT/HCPCS: 96127; 99212 ==